=== PATIENT | female | born 1960 | race Two or more races ===

== ENCOUNTER 2020-06-06 09:21 | Emergency (ER) | payer BC, OTHER ==
[~2020-06-06] VITALS: Ht 160 cm; Wt 115.7 kg
[~2020-06-06 09:21] MED LIST: LEVO100T81; [UNRECOGNIZED DRUG - OTHER]
[2020-06-06 09:34] VITALS: BP 124/99
[2020-06-06] MEDS ORDERED: KETOROLAC TROMETH 60MG/2ML VIAL IM ONE (10:45)
== END 2020-06-06 12:10 | disposition home or self-care (01) ==
LOC: ER 09:21
DX: S29.012A Strain of muscle and tendon of back wall of thorax, initial encounter (principal); S20.229A Contusion of unspecified back wall of thorax, initial encounter; I10 Essential (primary) hypertension; Z90.710 Acquired absence of both cervix and uterus; W10.9XXA Fall (on) (from) unspecified stairs and steps, initial encounter; Y93.89 Activity, other specified; Y92.89 Other specified places as the place of occurrence of the external cause; Y99.8 Other external cause status
CPT/HCPCS: 72070; 72100; 96372; 99284; J1885

== ENCOUNTER 2022-09-16 20:57 | Emergency (ER) | payer MEDICAID, OTHER ==
[~2022-09-16] VITALS: Ht 160 cm; Wt 122.5 kg
[2022-09-16] MEDS ORDERED: ALBUTEROL SULF 2.5 MG/0.5ML(0.5%) NEB SOLN NEB ONE (21:30)
[2022-09-16] MEDS ORDERED: DexAMETHasone 4 MG TAB PO ONE (21:30)
[2022-09-16] MEDS ORDERED: IPRATROPIUM BROM 0.5 MG/2.5ML INH SOL NEB ONE (21:30)
[2022-09-17] MEDS ORDERED: ALBUTEROL SULF 2.5 MG/0.5ML(0.5%) NEB SOLN NEB ONE (01:30)
[2022-09-17] MEDS ORDERED: ALBUTEROL MEDNEB 2.5 mg/3ml NEB ONE (01:34)
[2022-09-17 03:05] VITALS: BP 143/86
[2022-09-17] MEDS ORDERED: PRED20TA2 PO (03:41)
== END 2022-09-17 04:22 | disposition home or self-care (01) ==
LOC: ER 20:59
DX: J45.901 Unspecified asthma with (acute) exacerbation (principal); I10 Essential (primary) hypertension; Z90.710 Acquired absence of both cervix and uterus
CPT/HCPCS: 71045; 94640; 99285; J7644; J8540